=== PATIENT | female | born 1995 | race Caucasian/White ===

== ENCOUNTER 2017-04-01 11:00 | Day surgery (SDC) | payer BC ==
[~2017-04-01] VITALS: Ht 162.6 cm; Wt 86.2 kg
[~2017-04-01 11:00] MED LIST: CEFAZOLIN SOD 1 GM/ ISO 50 ML PREMIX IV ONE
[2017-04-01] MEDS ORDERED: POLYMYXIN 500,000/BACIT.10,000 UNITS in NS IRR 1 L IR ONE (15:49)
[2017-04-01] MEDS ORDERED: LR 1,000 ML IV SCH (16:28)
[2017-04-01] MEDS ORDERED: MORPHINE 4 MG/ML INJ. SYRINGE IVP PRN ×3 (16:30)
[2017-04-01] MEDS ORDERED: D5/0.45 NS 1,000 ML IV SCH (16:31)
[2017-04-01] MEDS ORDERED: HYDROmorphone 1 MG INJ. 1 MG/ML AMPUL IVP PRN (16:45)
[2017-04-01] MEDS ORDERED: HYDROcodone/ACETAMIN 5-325 MG TAB (NORCO/ VICODIN) PO PRN ×2 (16:45)
[2017-04-01 17:45] VITALS: BP_SYST 101
== END 2017-04-01 18:25 | disposition home or self-care (01) ==
LOC: SDS 11:00 → SMU 11:00 → SDS 18:25
PROVIDERS: ATTEND Colon & Rectal Surgery
DX: L05.01 Pilonidal cyst with abscess (principal); J45.909 Unspecified asthma, uncomplicated; Z88.8 Allergy status to other drugs, medicaments and biological substances; E66.01 Morbid (severe) obesity due to excess calories; Z80.3 Family history of malignant neoplasm of breast; Z79.899 Other long term (current) drug therapy; Z68.31 Body mass index [BMI] 31.0-31.9, adult
CPT/HCPCS: 11770; J0690; J7120